=== PATIENT | male | born 1955 | race Caucasian/White ===

== ENCOUNTER 2018-04-29 01:42 | Observation (INO) ==
[2018-04-29] MEDS: Sod Chloride 0.9% Inj 1,000 ML IV.CONT SCH ×2 (08:54→19:38)
[2018-04-29 10:17] LABS: Chloride 106 meq/L (98-107); Sodium 142 meq/L (136-145)
[2018-04-29 10:19] LABS: Calcium 7.8 mg/dL (8.5-10.1)
[2018-04-29 10:20] LABS: Anion Gap 9 meq/L (5-15); Blood Urea Nitrogen 15 mg/dL (7-18); Carbon Dioxide 27.5 meq/L (21.0-32.0); Glucose,Random 95 mg/dL (74-106)
[2018-04-29 10:23] LABS: Glomerular Filtration Rate Greater Than 89 mL/min (>89)
--- NOTE | 2018-04-29 10:48 | P.HPIM ---
History of Present Illness Primary Care Physician: Charan Palacio Chief Complaint: slurred speech History of Present Illness: patient is a 62 y/o male with history of alcohol abuse, dyslipidemia who presented to ER with slurred speech. his says that he's been having some dizziness for the past two years. last night while he came back home from a festival, during which he had a few drinks, and while he was eating he started to have sudden onset of slurred speech which lasted for half an hour. he was confused at the time which lasted till he came to ER. he denies any focal weakness or headache. he was given Meclizine in ER with no relief and still with some vertigo at rest. 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 - Medical History Medical History: Medical History (Last Reviewed 04/29/18 @ 10:45 by Deya West MD) Glaucoma Hernia Insomnia Osteoarthritis - Surgical History Surgical History: Surgical History (Last Updated 04/29/18 @ 10:45 by Deya West MD) H/O hernia repair - Tobacco History Second Hand Smoke Exposure: No Smoking Status: Never smoker - Alcohol History How Often Do You Have a Drink Containing Alcohol: 4 or more times a week - Substance Use History Substance History: No History of Abuse Medications and Allergies Active Medications: Active Medications Sodium Chloride (Ns Inj) 1,000 mls @ 100 mls/hr IV.CONT .Q10H [facility] Last Admin: 04/29/18 08:54 Dose: 100 mls/hr Meclizine HCl (Antivert) 25 mg PO Q8H [facility] Last Admin: 04/29/18 08:52 Dose: 25 mg Allergies Allergy/AdvReac Type Severity Reaction Status Date / Time iodine Allergy Severe Rash, Verified 04/29/18 01:50 Generalized Home Medications Medication Instructions Recorded Confirmed Type Ambien 04/29/18 History Metastron 04/29/18 History eye drops dispenser 04/29/18 04/29/18 History ketorolac 04/29/18 History Exam Vital signs: Vital Signs 04/29/18 08:00 Pulse Rate 68 Respiratory Rate 14 Blood Pressure 134/97 H Pulse Oximetry 97 Results - Labs CBC & Chem 7: 04/29/18 08:55 Labs: BMP 04/29/18 08:55 Sodium 142 Potassium 4.0 Chloride 106 Carbon Dioxide 27.5 BUN 15 Creatinine 0.74 Calcium 7.8 L Cardiac Enzymes 04/29/18 Range/Units 08:55 Troponin I Less than 0.02 L (0.02-0.05) ng/mL Caprini VTE Risk Assessment Caprini VTE Risk Assessment: No/Low Risk (score <= 1) Caprini Risk Assessment Model: Point Value = 1 Point Value = 2 Point Value = 3 Point Value = 5 Age 41-60 Minor surgery BMI > 25 kg/m2 Swollen legs Varicose veins or History of unexplained or recurrent spontaneous Oral contraceptives or hormone replacement Sepsis (< 1 month) Serious lung disease, including pneumonia (< 1 month) Abnormal pulmonary function Acute myocardial infarction Congestive heart failure (< 1 month) History of inflammatory bowel disease Medical patient at bed rest Age 61-74 Arthroscopic surgery Major open surgery (> 45 min) Laparoscopic surgery (> 45 min) Malignancy Confined to bed (> 72 hours) Immobilizing plaster cast Central venous access Age >= 75 History of VTE Family history of VTE Factor V Leiden Prothrombin [id number] Lupus anticoagulant Anticardiolipin antibodies Elevated serum homocysteine Heparin-induced thrombocytopenia Other congenital or acquired thrombophilia Stroke (< 1 month) Elective arthroplasty Hip, pelvis, or leg fracture Acute spinal cord injury (< 1 month) Prophylaxis Regimen: Total Risk Factor Score Risk Level Prophylaxis Regimen 0-1 Low Early ambulation 2 Moderate Order ONE of the following: *Sequential Compression Device (SCD) *Heparin 5000 units SQ BID 3-4 Higher Order ONE of the following medications: *Heparin 5000 units SQ TID *Enoxaparin/Lovenox 40 mg SQ daily (WT < 150 kg, CrCl > 30 mL/min) *Enoxaparin/Lovenox 30 mg SQ daily (WT < 150 kg, CrCl > 10-29 mL/min) *Enoxaparin/Lovenox 30 mg SQ BID (WT < 150 kg, CrCl > 30 mL/min) AND/OR *Sequential Compression Device (SCD) 5 or more Highest Order ONE of the following medications: *Heparin 5000 units SQ TID (Preferred with Epidurals) *Enoxaparin/Lovenox 40 mg SQ daily (WT < 150 kg, CrCl > 30 mL/min) *Enoxaparin/Lovenox 30 mg SQ daily (WT < 150 kg, CrCl > 10-29 mL/min) *Enoxaparin/Lovenox 30 mg SQ BID (WT < 150 kg, CrCl > 30 mL/min) AND *Sequential Compression Device (SCD) Assessment and Plan - Plan A/P - slurred speech/ vertigo/ with history of alcohol abuse CT head with no acute abnormality- check carotid doppler and echo- will consult neurology. Discussed Condition With: the patient, and RN. Discharge Planning: home- when w/u completed.
[2018-04-29] MEDS ORDERED: Haloperidol Inj 5 MG/ML Ampul IV.PUSH PRN (10:52)
[2018-04-29] MEDS ORDERED: LORazepam 1 MG Tablet PO PRN (10:52)
--- NOTE | 2018-04-29 11:58 | P.CONNEU ---
History of Present Illness Service: Neurology Primary Care Provider: Charan Palacio Chief Complaint: slurred speech, dizziness History of Present Illness: 62-year-old male transferred from [place] for further evaluation. Him and his are at a festival he had about 3 or 4 drinks. Came home. Taken Ambien for insomnia which she is done for years. Bili sitting eating when he suddenly had slurred speech and slumped forward. He is up for several minutes. He does not have any recollection as to what happened. He is never done this before. He states he had a recent stress test which was negative. Does not take any antiplatelet agents or any anticoagulants. No history of TIA or stroke or seizure. 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 - Medical History Medical History: Medical History (Last Reviewed 04/29/18 @ 10:45 by Deya West MD) Glaucoma Hernia Insomnia Osteoarthritis - Surgical History Surgical History: Surgical History (Last Updated 04/29/18 @ 10:45 by Deya West MD) H/O hernia repair - Tobacco History Second Hand Smoke Exposure: No Smoking Status: Never smoker - Alcohol History How Often Do You Have a Drink Containing Alcohol: 4 or more times a week - Substance Use History Substance History: No History of Abuse - Immunization History Tetanus Immunization: >5 Years Medications and Allergies Active Medications: Active Medications Aspirin (Ecotrin) 81 mg PO DAILY DON Flumazenil (Romazecon Inj) 0.2 mg IV.PUSH Q1M PRN PRN Reason: OVERSEDATION Haloperidol Lactate (Haldol Inj) 1 mg IV.PUSH Q15M PRN PRN Reason: for severe agitation Sodium Chloride (Ns Inj) 1,000 mls @ 100 mls/hr IV.CONT .Q10H [facility] Last Admin: 04/29/18 08:54 Dose: 100 mls/hr Lorazepam (Ativan) 1 mg PO Q4H PRN PRN Reason: for CIWA 8-10 Lorazepam (Ativan) 2 mg PO Q2H PRN PRN Reason: for CIWA 11-14 Lorazepam (Ativan Inj) 2 mg IV.PUSH Q2H PRN PRN Reason: for CIWA 11-14 Lorazepam (Ativan Inj) 2 mg IV.PUSH Q1H PRN PRN Reason: for CIWA 15-20 Lorazepam (Ativan Inj) 2 mg IV.PUSH Q15M PRN PRN Reason: for CIWA > 20 Lorazepam (Ativan Inj) 1 mg IV.PUSH Q4H PRN PRN Reason: for CIWA 8-10 Meclizine HCl (Antivert) 25 mg PO Q8H DON Last Admin: 04/29/18 08:52 Dose: 25 mg Multivitamins (Theragran) 1 tab PO DAILY DON Thiamine HCl (Vitamin B1) 100 mg PO DAILY DON Allergies Allergy/AdvReac Type Severity Reaction Status Date / Time iodine Allergy Severe Rash, Verified 04/29/18 01:50 Generalized Home Medications Medication Instructions Recorded Confirmed Type Ambien 04/29/18 History Metastron 04/29/18 History eye drops dispenser 04/29/18 04/29/18 History ketorolac 04/29/18 History Exam Vital signs: Vital Signs 04/29/18 08:00 Pulse Rate 68 Respiratory Rate 14 Blood Pressure 134/97 H Pulse Oximetry 97 Narrative: GENERAL: in NAD, SKIN: Warm and dry. HEAD: Atraumatic. Normocephalic. EYES: Irregular pupil OU ENT: No nasal bleeding or discharge. Mucous membranes pink and moist. NECK: Trachea midline. No JVD. CARDIOVASCULAR: Regular rate and rhythm. RESPIRATORY: No accessory muscle use. GASTROINTESTINAL: Abdomen soft, non-tender, nondistended. MUSCULOSKELETAL: Extremities without clubbing, cyanosis, or edema. No obvious deformities. NEUROLOGICAL: Awake and alert. No aphasia, fluent articulate, No facial asymmetry, irregular pupils OU, eomi, VFF, No drift, Motor grossly within normal limits. Five out of 5 muscle strength in the arms and legs. Tone slightly increased upper extremities, Sensory normal in all 4 extremities to pin , msr 1-2+ sym, no clonus, planterflexor, PSYCHIATRIC: Appropriate mood and affect; insight and judgment normal. - Constitutional no acute distress - Routine HEENT Exam Head: Present: normocephalic Eye: Present: EOMI Results - Labs CBC & Chem 7: 04/29/18 08:55 Labs: Laboratory Results - last 24 hr 04/29/18 08:55 Sodium 142 Potassium 4.0 Chloride 106 Carbon Dioxide 27.5 Anion Gap 9 BUN 15 Creatinine 0.74 Estimated GFR Greater than 89 Random Glucose 95 Calcium 7.8 L Troponin I Less than 0.02 L Review/Management - Diagnosis (1) Syncope Code(s): R55 - Syncope and collapse Status: Acute Current Visit: Yes (2) Vertigo Code(s): R42 - Dizziness and giddiness Status: Acute Current Visit: No (3) TIA (transient ischemic attack) Code(s): G45.9 - Transient cerebral ischemic attack, unspecified Status: Acute Current Visit: Yes (4) 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 He states he has had multiple alcoholic beverages and Ambien in the past and has not had any problems with it so although this is possible, lesser likely Recommendations MRI MRA brain Aspirin Plavix. He can stop aspirin and 6-12 weeks EEG Telemetry May require further cardiac evaluation with an event monitor however had recent stress test and he will follow-up with his family doctor and final operations technician where he lives Behavioral modification and risk factor reduction. Weight loss, blood pressure control, blood sugar control, lipid control. Exercise No driving, operating any heavy machinery or dangerous machinery, swimming alone for at least 6 months of being seizure, spell free. Discussed patient spouse agree with above plan
--- NOTE | 2018-04-29 12:19 | MR ---
EXAM DATE: 04/29/2018 11:45 AM EDT AGE/SEX: 62 years / Male INDICATIONS: Dizziness. Slurred speech. Memory loss. CLINICAL DATA: This is the patient's initial encounter. Patient reports that signs and symptoms have been present for 1 day and indicates a pain score of 0/10. MEDICAL/SURGICAL HISTORY: None. Inguinal hernia repair. Retina surgeryThroat polyps removed. COMPARISON: [facility], MR HEAD W/O CONTRAST, 04/29/2018. . TECHNIQUE: 3D [id number] MRA was performed. Source images, multiplanar STS MIP, and 3D volum e MIP reconstructions were reviewed. FINDINGS: Anterior Circulation: Intracranial Carotid Arteries: Patent. HARLEY: There is no evidence for aneurysm, vessel truncation or stenosis, and no evidence for vascular m alformation. MCA: There is no evidence for aneurysm, vessel truncation or stenosis, and no evidence for vascular m alformation. Posterior Circulation: Distal Vertebral Arteries: Distal Vertebral arteries are symetrical and patent. Basilar Artery: There is no evidence for aneurysm, vessel truncation or stenosis, and no evidence for vascular malformation. RUBBER GASKET INSPECTOR TRIMMER and Cerebellar Branches: There is no evidence for aneurysm, vessel truncation or stenosis, and no evidence for vascular malformation. CONCLUSION: 1. Negative MRA Cow ([place]) non contrast. Electronically signed by: Javan Delgado MD 04/29/2018 12:18 PM EDT
--- NOTE | 2018-04-29 12:48 | MR ---
EXAM DATE: 04/29/2018 11:45 AM EDT AGE/SEX: 62 years / Male INDICATIONS: Dizziness. Slurred speech. Memory loss. CLINICAL DATA: This is the patient's initial encounter. Patient reports that signs and symptoms have been present for 1 day and indicates a pain score of 0/10. MEDICAL/SURGICAL HISTORY: None. Inguinal hernia repair. Retina surgery Throat polyps removed COMPARISON: No prior exams available for comparison. TECHNIQUE: Multiplanar, multisequence examination of the brain was performed without contrast. FINDINGS: Cerebrum: The ventricles are normal for age. No evidence of midline shift, mass lesion, hemorrhage or acute infarction. No extraaxial fluid collections are seen. The pituitary gland and suprasellar cistern are normal in configuration. White Matter: On the FLAIR weighted images there are multiple small punctate areas of scattered incr eased signal characteristic with chronic small vessel ischemic change. Posterior Fossa: The cerebellum and brainstem are intact. The 4th ventricle is midline. The cerebel lopontine angle is unremarkable. The cerebellar tonsils are normal in position. Diffusion Imaging: No focal areas of restricted diffusion are seen. No evidence of acute infarction . Extracranial: The visualized portions of the orbits and paranasal sinuses are unremarkable. CONCLUSION: 1. No acute hemorrhage, mass or acute infarction. 2. Mild atrophy and chronic small vessel ischemic changes. Electronically signed by: Alf Richardson MD 04/29/2018 12:47 PM EDT
--- NOTE | 2018-04-29 15:08 | US ---
EXAM DATE: 04/29/2018 12:00 AM EDT AGE/SEX: 62 years / Male INDICATIONS: Syncope. CLINICAL DATA: This is the patient's initial encounter. Patient reports that signs and symptoms have been present for 1 day and indicates a pain score of 2/10. MEDICAL/SURGICAL HISTORY: Osteoarthritis. Inflammatory bowel disease. Glaucoma. Hernia. Insomn ia. . Hernia. COMPARISON: . VELOCITY PARAMETERS: ICA/CCA Ratio: Right 0.7 , Left 0.9 ICA: Right 71 cm/sec, Left 61 cm/sec CCA: Right 96 cm/sec, Left 68 cm/sec ECA: Right 70 cm/sec, Left 63 cm/sec Vertebral: Right 39 cm/sec antegrade, Left 38 cm/sec antegrade FINDINGS: Right Carotid: Minimal plaque in the common carotid artery and at the bulb.The waveforms are within normal limits. Left Carotid: No significant plaque is visualized. The waveforms are within normal limits. Other: None. CONCLUSION: 1. Right Internal Carotid Artery: Findings indicate <50% stenosis. 2. Left Internal Carotid Artery: No significant stenosis or atherosclerotic plaque is visualized. Electronically signed by: Javan Delgado MD 04/29/2018 3:06 PM EDT
--- NOTE | 2018-04-29 21:36 | ECHRPT ---
Indication: CVA/TIA CONCLUSIONS The left ventricular systolic function is normal with an estimated ejection fraction in the range of 60-65%. Normal left ventricular size. Wall thickness is normal. No regional wall motion abnormalities are present. There is trace tricuspid valve regurgitation. The estimated pulmonary arterial pressure is 38 mmHg. BP: / HR: Rhythm: Sinus MEASUREMENTS (Male / Female) Normal Values Technical Quality:Fair 2D ECHO LV Diastolic Diameter PLAX 4.6 cm 4.2 - 5.9 / 3.9 - 5.3 cm LV Systolic Diameter PLAX 3.1 cm IVS Diastolic Thickness 1.0 cm 0.6 - 1.0 / 0.6 - 0.9 cm LVPW Diastolic Thickness 1.0 cm 0.6 - 1.0 / 0.6 - 0.9 cm LV Relative Wall Thickness 0.4 LVOT Diameter 1.9 cm LA Systolic Diameter LX 3.0 cm 3.0 - 4.0 / 2.7 - 3.8 cm M-MODE Aortic Root Diameter MM 3.0 cm LA Systolic Diameter MM 4.0 cm LA Ao Ratio MM 1.3 AV Cusp Separation MM 2.2 cm DOPPLER AV Peak Velocity 114.0 cm/s AV Peak Gradient 5.2 mmHg LVOT Peak Velocity 89.3 cm/s LVOT Peak Gradient 3.2 mmHg AV Area Cont Eq pk 2.2 cm MV Area PHT 4.6 cm Mitral E Point Velocity 86.4 cm/s Mitral A Point Velocity 73.1 cm/s Mitral E to A Ratio 1.2 LV E' Lateral Velocity 9.3 cm/s Mitral E to LV E' Lateral Ratio 9.3 LV E' Septal Velocity 5.6 cm/s Mitral E to LV E' Septal Ratio 15.5 TR Peak Velocity 262.0 cm/s TR Peak Gradient 27.5 mmHg Right Atrial Pressure 10.0 mmHg Pulmonary Artery Systolic Pressu 37.5 mmHg Right Ventricular Systolic Press 37.5 mmHg PV Peak Velocity 97.7 cm/s PV Peak Gradient 3.8 mmHg FINDINGS LEFT VENTRICLE The left ventricular systolic function is normal with an estimated ejection fraction in the range of 60-65%. Normal left ventricular size. Wall thickness is normal. No regional wall motion abnormalities are present. RIGHT VENTRICLE Normal right ventricular size and systolic function. LEFT ATRIUM The left atrial size is normal. RIGHT ATRIUM The right atrial size is normal. ATRIAL SEPTUM Normal atrial septal thickness without atrial level shunting by limited color doppler interrogation. AORTA The aortic root and proximal ascending aorta are normal in size on limited imaging. MITRAL VALVE Structurally normal mitral valve. No mitral valve stenosis or regurgitation. AORTIC VALVE Trileaflet aortic valve. No aortic valve stenosis or regurgitation. TRICUSPID VALVE Structurally normal tricuspid valve. There is trace tricuspid valve regurgitation. The estimated pulmonary arterial pressure is 37.5 mmHg. PULMONARY VALVE No pulmonary valve regurgitation or stenosis. VESSELS The inferior vena cava is normal in size. PERICARDIUM No pericardial effusion. Kevin Shields MD, FACC (Electronically Signed) Final Date:29 April 2018 21:35
[2018-04-29 21:54] VITALS: O2SAT 99
[2018-04-30] MEDS: Sod Chloride 0.9% Inj 1,000 ML IV.CONT SCH (03:39)
[2018-04-30 04:40] LABS: Baso % (Auto) 0.6 % (0.0-2.0); Eos # (Auto) 0.1 th/mm3 (0.0-0.4); Eos % (Auto) 1.5 % (0.0-4.0); Hemoglobin 15.8 gm/dL (13.0-17.0); Lymph # (Auto) 1.6 th/mm3 (1.0-4.8); Lymph % (Auto) 31.7 % (9.0-44.0); Mean Corpuscular HGB Conc 33.5 % (32.0-36.0); Mean Corpuscular Hemoglobin 31.9 pg (27.0-34.0); Mean Corpuscular Volume 95.2 fL (80.0-100.0); Mean Platelet Volume 8.1 fL (7.0-11.0); Mono # (Auto) 0.6 th/mm3 (0.0-0.9); Mono % (Auto) 11.3 % (0.0-8.0); Neut # (Auto) 2.7 th/mm3 (1.8-7.7); Neut % (Auto) 54.9 % (16.0-70.0); Platelet Count 179 th/mm3 (150-450); Red Blood Count 4.94 mil/mm3 (4.50-5.90); Red Cell Distribution Width 12.6 % (11.6-17.2)
--- NOTE | 2018-04-30 06:37 | MG ---
cc: Best Jain MD EEG NUMBER: [id number] DESCRIPTION: Well-formed alpha activity 8-9 Hz, 20-40 microvolts. Good anterior to posterior gradient. Attenuation of background with transition into drowsy state followed by stage I sleep small vertex waves. Followed by stage II sleep with the appearance of spindles. One tiny phase reversal occurring at T3 epoch 82. Photic stimulation not performed. Single lead EKG showing sinus rhythm. Good EEG variability reactivity. INTERPRETATION: Mild nonspecific change, otherwise normal awake sleep electroencephalogram. No epileptic activity. Clinical correlation. MD MARIBEL Jessica/ally , 06:10 AM , 06:15 AM
[2018-04-30 08:45] VITALS: BP 147/92; RESP 13; TEMP 98.3
[2018-04-30 08:50] VITALS: PULSE 70
--- NOTE | 2018-04-30 09:24 | P.PNIM ---
Subjective Interval history: f/u; TIA in no acute distress. no new complaints. d/w the RN and no acute issues over night. Physical Exam Vital signs: Vital Signs 04/29/18 10:00 04/29/18 11:56 04/29/18 12:00 Temperature Pulse Rate 68 74 80 Respiratory Rate 12 Blood Pressure 133/85 140/91 H Pulse Oximetry 98 97 04/29/18 16:00 04/29/18 16:08 04/29/18 20:00 Temperature 98.5 F Pulse Rate 70 88 78 Respiratory Rate 27 H 17 Blood Pressure 149/97 H 140/92 H Pulse Oximetry 99 04/30/18 00:00 04/30/18 04:00 04/30/18 08:00 Temperature 98.3 F 98.1 F 98.3 F Pulse Rate 96 H 59 L 71 Respiratory Rate 22 22 13 Blood Pressure 140/82 130/90 147/92 H Pulse Oximetry 99 Intake & Output 04/29/18 04/30/18 04/30/18 18:59 06:59 18:59 Intake Total 480 / 480 3034 / 3034 Output Total 1400 / 1400 1999 Balance -920 / -920 1034 / 1034 Weight 102.8 kg Intake: IV 2914 / 2914 NS Inj 1,000 ML @ 100 mls/hr IV 2914 / 2914 .CONT .Q10H DON Rx#:[id number] Oral 480 / 480 120 / 120 Output: Urine 1400 / 1400 1999 Other: # Bowel Movements 0 Weight On Admission 102.4 kg - Constitutional no acute distress - Routine Respiratory Exam Present: CTA bilaterally - Routine Cardiovascular Exam Present: RRR - Routine Abdominal Exam Present: soft - Routine Extremities Exam Comments: no pedal edema. - Routine Neurological Exam Present: alert, oriented X3 Results - Labs CBC & Chem 7: 04/30/18 04:00 04/29/18 08:55 Laboratory Results - last 24 hr 04/29/18 04/30/18 04/30/18 08:55 04:00 07:57 CBC w Diff Auto diff final WBC 5.0 RBC 4.94 Hgb 15.8 Hct 47.0 MCV 95.2 MCH 31.9 MCHC 33.5 RDW 12.6 Plt Count 179 MPV 8.1 Neut % (Auto) 54.9 Lymph % (Auto) 31.7 Phelps % (Auto) 11.3 H Eos % (Auto) 1.5 Baso % (Auto) 0.6 Neut # (Auto) 2.7 Lymph # (Auto) 1.6 Phelps # (Auto) 0.6 Eos # (Auto) 0.1 Baso # (Auto) 0.0 WBC Differential . Differential Comment . Sodium 142 Potassium 4.0 Chloride 106 Carbon Dioxide 27.5 Anion Gap 9 BUN 15 Creatinine 0.74 Estimated GFR Greater than 89 POC Glucose 103 Random Glucose 95 Calcium 7.8 L Troponin I Less than 0.02 L - Imaging Impressions Carotid Doppler Study 04/29/18 00:00 CONCLUSION: 1. Right Internal Carotid Artery: Findings indicate <50% stenosis. 2. Left Internal Carotid Artery: No significant stenosis or atherosclerotic plaque is visualized. Head MRI 04/29/18 00:00 CONCLUSION: 1. No acute hemorrhage, mass or acute infarction. 2. Mild atrophy and chronic small vessel ischemic changes. Head MRA 04/29/18 00:00 CONCLUSION: 1. Negative MRA Cow ([place]) non contrast. Assessment and Plan - Plan A/P - slurred speech/ vertigo/ with history of alcohol abuse- possible TIA imaging studies including MRI/MRA brain with no acute abnormality. echo with EF 60% and no regional wall motion abnormalities. continue aspirin- can be stopped after 6-12 weeks, plavix. counselled on drinking cessation. Discharge Planning: dc home today with f/u with pcp and neurology. see med list. d/w the patient and RN.
--- NOTE | 2018-04-30 10:06 | P.PNNEU ---
Subjective Subjective Comments: No cp, no dyspnea, no maradiaga, no focal weakness, no vision loss Active Medications: Active Medications Aspirin (Ecotrin) 81 mg PO DAILY [facility] Last Admin: 04/30/18 09:24 Dose: 81 mg Clopidogrel Bisulfate (Plavix) 75 mg PO DAILY [facility] Last Admin: 04/30/18 09:24 Dose: 75 mg Flumazenil (Romazecon Inj) 0.2 mg IV.PUSH Q1M PRN PRN Reason: OVERSEDATION Haloperidol Lactate (Haldol Inj) 1 mg IV.PUSH Q15M PRN PRN Reason: for severe agitation Sodium Chloride (Ns Inj) 1,000 mls @ 100 mls/hr IV.CONT .Q10H [facility] Last Infusion: 04/30/18 06:08 Dose: Infused Lorazepam (Ativan) 1 mg PO Q4H PRN PRN Reason: for CIWA 8-10 Lorazepam (Ativan) 2 mg PO Q2H PRN PRN Reason: for CIWA 11-14 Lorazepam (Ativan Inj) 2 mg IV.PUSH Q2H PRN PRN Reason: for CIWA 11-14 Lorazepam (Ativan Inj) 2 mg IV.PUSH Q1H PRN PRN Reason: for CIWA 15-20 Lorazepam (Ativan Inj) 2 mg IV.PUSH Q15M PRN PRN Reason: for CIWA > 20 Lorazepam (Ativan Inj) 1 mg IV.PUSH Q4H PRN PRN Reason: for CIWA 8-10 Meclizine HCl (Antivert) 25 mg PO Q8H [facility] Last Admin: 04/30/18 05:32 Dose: 25 mg Multivitamins (Theragran) 1 tab PO DAILY [facility] Last Admin: 04/30/18 09:24 Dose: 1 tab Thiamine HCl (Vitamin B1) 100 mg PO DAILY [facility] Last Admin: 04/30/18 09:24 Dose: 100 mg Allergies/Adverse Reactions: Allergies Allergy/AdvReac Type Severity Reaction Status Date / Time iodine Allergy Severe Rash, Verified 04/29/18 01:50 Generalized Review of Systems All other systems reviewed negative except as stated in HPI Physical Exam Vital signs: Vital Signs 04/29/18 11:56 04/29/18 12:00 04/29/18 16:00 Temperature Pulse Rate 74 80 70 Respiratory Rate Blood Pressure 140/91 H Pulse Oximetry 97 04/29/18 16:08 04/29/18 20:00 04/30/18 00:00 Temperature 98.5 F 98.3 F Pulse Rate 88 78 96 H Respiratory Rate 27 H 17 22 Blood Pressure 149/97 H 140/92 H 140/82 Pulse Oximetry 99 04/30/18 04:00 04/30/18 08:00 Temperature 98.1 F 98.3 F Pulse Rate 59 L 71 Respiratory Rate 22 13 Blood Pressure 130/90 147/92 H Pulse Oximetry 99 Intake & Output 04/29/18 04/30/18 04/30/18 18:59 06:59 18:59 Intake Total 480 / 480 3034 / 3034 Output Total 1400 / 1400 1999 Balance -920 / -920 1034 / 1034 Weight 102.8 kg Intake: IV 2914 / 2914 NS Inj 1,000 ML @ 100 mls/hr IV 2914 / 2914 .CONT .Q10H DON Rx#:[id number] Oral 480 / 480 120 / 120 Output: Urine 1400 / 1400 1999 Other: # Bowel Movements 0 Weight On Admission 102.4 kg Narrative: GENERAL: in NAD, SKIN: Warm and dry. HEAD: Atraumatic. Normocephalic. EYES: Irregular pupil OU ENT: No nasal bleeding or discharge. Mucous membranes pink and moist. NECK: Trachea midline. No JVD. CARDIOVASCULAR: Regular rate and rhythm. RESPIRATORY: No accessory muscle use. GASTROINTESTINAL: Abdomen soft, non-tender, nondistended. MUSCULOSKELETAL: Extremities without clubbing, cyanosis, or edema. No obvious deformities. NEUROLOGICAL: Awake and alert. No aphasia, fluent articulate, No facial asymmetry, irregular pupils OU, eomi, VFF, No drift, Motor grossly within normal limits. Five out of 5 muscle strength in the arms and legs. PSYCHIATRIC: Appropriate mood and affect; insight and judgment normal. - Constitutional no acute distress - Routine HEENT Exam Head: Present: normocephalic Eye: Present: EOMI Objective Laboratory Results - last 24 hr 04/29/18 04/30/18 04/30/18 08:55 04:00 07:57 CBC w Diff Auto diff final WBC 5.0 RBC 4.94 Hgb 15.8 Hct 47.0 MCV 95.2 MCH 31.9 MCHC 33.5 RDW 12.6 Plt Count 179 MPV 8.1 Neut % (Auto) 54.9 Lymph % (Auto) 31.7 [place] % (Auto) 11.3 H Eos % (Auto) 1.5 Baso % (Auto) 0.6 Neut # (Auto) 2.7 Lymph # (Auto) 1.6 [place] # (Auto) 0.6 Eos # (Auto) 0.1 Baso # (Auto) 0.0 WBC Differential . Differential Comment . 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 He states he has had multiple alcoholic beverages and Ambien in the past and has not had any problems with it so although this is possible, lesser likely Recommendations Neuro stable MRI MRA brain; negative for any acute lesion, no significant vaso-occlusive disease Aspirin Plavix. He can stop aspirin and 6-12 weeks EEG; overall normal awake sleep EEG with minimal nonspecific change Telemetry May require further cardiac evaluation with an event monitor however had recent stress test and he will follow-up with his family doctor and general superintendent where he lives Behavioral modification and risk factor reduction. Weight loss, blood pressure control, blood sugar control, lipid control. Exercise No driving, operating any heavy machinery or dangerous machinery, swimming alone for at least 6 months of being syncope/seizure/spell free. Discussed patient Discharge planning follow-up with his primary care physician general superintendent. He can follow-up with us as the need arises
== END 2018-04-30 10:40 | disposition home or self-care (01) ==
LOC: PHEDDLT 06:46 → PHICU 06:46
PROVIDERS: ADMIT Internal Medicine; ATTEND Internal Medicine